=== PATIENT | female | born 1970 | race Caucasian/White ===

== ENCOUNTER 2017-04-24 11:48 | Emergency (ER) | payer OTHER ==
[~2017-04-24] VITALS: Ht 172.7 cm; Wt 99.8 kg
[~2017-04-24 11:48] MED LIST: ALBU90OI INH; BACITO TOP; BENLYSTA120 MG IV; BUPR150ER PO; BUSP10 PO; Bactrim Ds Tab1 EACH PO; CYCL10 PO; DIAZ5 PO; GABA300 PO; HYDACE5 PO; HYDACE5325 PO; HYDR1TAB94 PO; HYDSUL200 PO; HYOS.125 SL; INDO50 PO; METCAR500 PO; METPRE4DP PO; NAPR375 PO; NAPR500 PO; Norco 5-325 Ta1 EACH PO; OMEPRAZOLE MAGN20 MG PO; OXYACE5T PO; PRED10 PO; PROC25S PR; PROM25 PO; Percocet 10-321 EACH PO; Percocet 5-3251 EACH PO; Prednisone20 MG PO; TRAZ50 PO; Zofran8 MG PO
[2017-04-24] MEDS ORDERED: Pedi-Dri 100,0060 GM SS (13:04)
[2017-04-24] MEDS ORDERED: NYST237S MT (13:04)
[2018-01-10] MEDS ORDERED: Norco 5-325 Ta1 EACH PO (18:58)
[2018-01-13] MEDS ORDERED: Miralax17 GM PO (21:04)
[2018-01-13] MEDS ORDERED: ASPI81CH PO (21:10)
[2018-01-13] MEDS ORDERED: CLOP75 PO (21:11)
[2018-01-13] MEDS ORDERED: METO50ER PO (21:11)
[2018-01-13] MEDS ORDERED: ATOR20 PO (21:11)
[2018-01-13] MEDS ORDERED: Ranitidine HCl300 M1 PO (21:12)
[2018-01-14] MEDS ORDERED: METO25ER PO (10:19)
[2018-01-14] MEDS ORDERED: OXYC5 PO (10:20)
== END 2017-04-24 13:06 | disposition home or self-care (01) ==
LOC: ER 11:48
DX: B37.0 Candidal stomatitis (principal); G43.909 Migraine, unspecified, not intractable, without status migrainosus; K21.9 Gastro-esophageal reflux disease without esophagitis; F17.290 Nicotine dependence, other tobacco product, uncomplicated; Z88.5 Allergy status to narcotic agent; Z88.8 Allergy status to other drugs, medicaments and biological substances; Z79.899 Other long term (current) drug therapy
CPT/HCPCS: 99282

== ENCOUNTER 2017-12-11 21:48 | Inpatient (IN) | payer OTHER ==
[~2017-12-11] VITALS: Ht 172.7 cm; Wt 108.0 kg
[~2017-12-11 21:48] MED LIST changes: +NYST237S MT; +Pedi-Dri 100,0060 GM SS
[2017-12-11] MEDS ORDERED: Hydrocodone-Ap1 EA23 PO (22:00)
[2017-12-11] MEDS ORDERED: PRED20 PO (22:01)
[2017-12-11 22:30] LABS: BASOPHILS ABSOLUTE AUTO 0.04 K/mm3 (0.00-0.23); BASOPHILS PERCENT AUTO 0 % (0-2); EOSINOPHILS ABSOLUTE AUTO 0.01 K/mm3 (0.00-0.68); EOSINOPHILS PERCENT AUTO 0 % (0-6); Hematocrit 44.5 % (33.0-51.0); Hemoglobin 14.7 g/dL (11.5-16.0); IMMATURE GRAN ABSOLUTE AUTO 0.03 K/mm3 (0.00-0.10); IMMATURE GRAN PERCENT AUTO 0 % (0-1); LYMPHOCYTES ABSOLUTE AUTO 0.95 K/mm3 (0.84-5.20); LYMPHOCYTES PERCENT AUTO 11 % (21-46); MONOCYTES ABSOLUTE AUTO 0.63 K/mm3 (0.16-1.47); MONOCYTES PERCENT AUTO 7 % (4-13); Mean Corpuscular HGB 31.3 pg (26.0-34.0); Mean Corpuscular Volume 95 fL (80-100); Mean Platelet Volume 9.3 fL (9.1-12.4); NEUTROPHILS ABSOLUTE AUTO 7.31 K/mm3 (1.96-9.15); NEUTROPHILS PERCENT AUTO 82 % (41-73); Platelet Count 403 K/mm3 (150-400); RDW Coefficient Variation 12.3 % (11.7-14.2); Red Blood Cell Count 4.69 M/mm3 (3.80-5.20); White Blood Cell Count 8.97 K/mm3 (4.00-11.30)
[2017-12-11 22:45] LABS: Alanine Aminotransfer (ALT/SGP 27 U/L (12-78); Albumin, Blood 3.6 g/dL (3.4-5.0); Albumin/Globulin Ratio 0.9 (0.8-1.8); Alk Phos 104 U/L (50-136); Anion Gap 10 mmol/L (6-16); Aspartate Aminotrans (AST/SGOT 16 U/L (12-37); Bilirubin, Total 0.2 mg/dL (0.1-1.0); Blood Urea Nitrogen 11 mg/dL (8-24); Bun/Creatinine Ratio 10.8 (12.0-20.0); CO2, Blood 24 mmol/L (21-32); Calcium, Blood 8.4 mg/dL (8.5-10.1); Chloride, Blood 106 mmol/L (98-108); Creatinine, Blood 1.02 mg/dL (0.40-1.00); Globulin, Blood 4.2 g/dL (2.2-4.0); Glomerular Filtration Rate >60 (60-); Glucose, Blood 111 mg/dL (70-99); Potassium, Blood 3.7 mmol/L (3.5-5.5); Sodium, Blood 140 mmol/L (136-145); Total Protein, Blood 7.8 g/dL (6.4-8.2); Troponin I 0.448 ng/mL (0.000-0.040)
[2017-12-11 23:09] LABS: International Normalized Ratio 0.92; Prothrombin Time Results 9.5 Sec (9.7-11.5)
[2017-12-12 06:23] LABS: Hematocrit 41.4 % (33.0-51.0); Hemoglobin 13.7 g/dL (11.5-16.0); Mean Corpuscular HGB 31.2 pg (26.0-34.0); Mean Corpuscular HGB Conc 33.1 g/dL (31.5-36.5); Mean Corpuscular Volume 94 fL (80-100); Mean Platelet Volume 9.3 fL (9.1-12.4); Platelet Count 378 K/mm3 (150-400); RDW Coefficient Variation 12.2 % (11.7-14.2); Red Blood Cell Count 4.39 M/mm3 (3.80-5.20); White Blood Cell Count 8.22 K/mm3 (4.00-11.30)
[2017-12-12 06:44] LABS: Alanine Aminotransfer (ALT/SGP 25 U/L (12-78); Albumin, Blood 3.3 g/dL (3.4-5.0); Albumin/Globulin Ratio 0.9 (0.8-1.8); Alk Phos 95 U/L (50-136); Anion Gap 9 mmol/L (6-16); Aspartate Aminotrans (AST/SGOT 14 U/L (12-37); Bilirubin, Total 0.2 mg/dL (0.1-1.0); Blood Urea Nitrogen 12 mg/dL (8-24); Bun/Creatinine Ratio 13.7 (12.0-20.0); CO2, Blood 23 mmol/L (21-32); Calcium, Blood 8.3 mg/dL (8.5-10.1); Chloride, Blood 106 mmol/L (98-108); Creatinine, Blood 0.88 mg/dL (0.40-1.00); Globulin, Blood 3.8 g/dL (2.2-4.0); Glomerular Filtration Rate >60 (60-); Glucose, Blood 127 mg/dL (70-99); Potassium, Blood 4.3 mmol/L (3.5-5.5); Sodium, Blood 138 mmol/L (136-145); Total Protein, Blood 7.1 g/dL (6.4-8.2)
[2017-12-12 07:00] LABS: Troponin I 0.557 ng/mL (0.000-0.040)
[2017-12-12 15:09] LABS: Troponin I 0.491 ng/mL (0.000-0.040)
[2017-12-13 03:56] LABS: BASOPHILS ABSOLUTE AUTO 0.03 K/mm3 (0.00-0.23); BASOPHILS PERCENT AUTO 0 % (0-2); EOSINOPHILS ABSOLUTE AUTO 0.05 K/mm3 (0.00-0.68); EOSINOPHILS PERCENT AUTO 1 % (0-6); Hematocrit 37.2 % (33.0-51.0); IMMATURE GRAN ABSOLUTE AUTO 0.01 K/mm3 (0.00-0.10); IMMATURE GRAN PERCENT AUTO 0 % (0-1); LYMPHOCYTES ABSOLUTE AUTO 3.78 K/mm3 (0.84-5.20); LYMPHOCYTES PERCENT AUTO 51 % (21-46); MONOCYTES ABSOLUTE AUTO 0.67 K/mm3 (0.16-1.47); MONOCYTES PERCENT AUTO 9 % (4-13); Mean Corpuscular HGB 30.9 pg (26.0-34.0); Mean Corpuscular HGB Conc 32.3 g/dL (31.5-36.5); Mean Corpuscular Volume 96 fL (80-100); Mean Platelet Volume 9.4 fL (9.1-12.4); NEUTROPHILS ABSOLUTE AUTO 2.86 K/mm3 (1.96-9.15); NEUTROPHILS PERCENT AUTO 39 % (41-73); Platelet Count 315 K/mm3 (150-400); RDW Coefficient Variation 12.5 % (11.7-14.2); RDW Standard Deviation 43.8 fL (35.1-46.3); Red Blood Cell Count 3.88 M/mm3 (3.80-5.20)
[2017-12-13 04:19] LABS: Alanine Aminotransfer (ALT/SGP 21 U/L (12-78); Albumin, Blood 2.7 g/dL (3.4-5.0); Albumin/Globulin Ratio 0.8 (0.8-1.8); Alk Phos 72 U/L (50-136); Anion Gap 6 mmol/L (6-16); Aspartate Aminotrans (AST/SGOT 11 U/L (12-37); Bilirubin, Total 0.2 mg/dL (0.1-1.0); Blood Urea Nitrogen 18 mg/dL (8-24); Bun/Creatinine Ratio 19.1 (12.0-20.0); CO2, Blood 27 mmol/L (21-32); Calcium, Blood 7.8 mg/dL (8.5-10.1); Chloride, Blood 108 mmol/L (98-108); Creatinine, Blood 0.94 mg/dL (0.40-1.00); Globulin, Blood 3.2 g/dL (2.2-4.0); Glomerular Filtration Rate >60 (60-); Glucose, Blood 88 mg/dL (70-99); Sodium, Blood 141 mmol/L (136-145); Total Protein, Blood 5.9 g/dL (6.4-8.2)
== END 2017-12-14 12:28 | disposition short-term general hospital (02) | DRG 281 ==
LOC: ER 21:48 → PCU 21:49 → ER 23:44 → PCU 12-12 00:09
PROVIDERS: Emergency Medicine; Internal Medicine
PROC: B2111ZZ Fluoroscopy of Multiple Coronary Arteries using Low Osmolar Contrast (ICD-10-PCS; principal; 2017-12-14)
PROC: 4A023N7 Measurement of Cardiac Sampling and Pressure, Left Heart, Percutaneous Approach (ICD-10-PCS; 2017-12-14)
DX: I21.4 Non-ST elevation (NSTEMI) myocardial infarction (principal); I31.9 Disease of pericardium, unspecified; M32.9 Systemic lupus erythematosus, unspecified; G43.909 Migraine, unspecified, not intractable, without status migrainosus; Z87.891 Personal history of nicotine dependence; K21.9 Gastro-esophageal reflux disease without esophagitis; I25.10 Atherosclerotic heart disease of native coronary artery without angina pectoris
CPT/HCPCS: 36415; 71046; 76705; 80053; 82550; 84484; 85025; 85027; 85379; 85610; 85651; 85730; 86140; 86850; 86900; 86901; 93005; 93010; 93306; 93458; 96365; 96372; 96375; 96376; 99152; 99153; 99285-25; C1769; C1894; G0378; J0690; J1644; J1650; J1885; J2250; J2270; J2405; J2930; J3010; J7030; Q9967

== ENCOUNTER 2019-01-17 22:02 | Emergency (ER) | payer OTHER ==
[~2019-01-17] VITALS: Ht 170.2 cm; Wt 125.2 kg
[~2019-01-17 22:02] MED LIST changes: +ASPI81CH PO; +ATOR20 PO; +CLOP75 PO; +Hydrocodone-Ap1 EA23 PO; +METO25ER PO; +METO50ER PO; +Miralax17 GM PO; +OXYC5 PO; +PRED20 PO; +Ranitidine HCl300 M1 PO
== END 2019-01-18 00:34 | disposition home or self-care (01) ==
LOC: ER 22:02
DX: R51 Headache (principal); Z88.5 Allergy status to narcotic agent; Z88.6 Allergy status to analgesic agent; Z88.8 Allergy status to other drugs, medicaments and biological substances; Z79.899 Other long term (current) drug therapy; Z79.82 Long term (current) use of aspirin; G43.909 Migraine, unspecified, not intractable, without status migrainosus; Z87.891 Personal history of nicotine dependence
CPT/HCPCS: 96372; 99283-25; J1200; J3010

== ENCOUNTER 2020-03-29 08:35 | Day surgery (SDC) | payer MEDICARE, OTHER ==
[~2020-03-29] VITALS: Ht 172.7 cm; Wt 118.2 kg
[~2020-03-29 08:35] MED LIST changes: +BENLYSTA120 MG; +Isosorbide Mono30 MG PO; +NITR.4SL SL; +OMEP20ER PO; +ZYRTEC10 M2 PO
[2020-03-29] MEDS ORDERED: Norco 5-325 Ta1 EACH PO (09:17)
[2020-03-29] MEDS ORDERED: CLON.5 PO (09:18)
--- NOTE | 2020-03-29 11:38 | NUR ---
PT TO RECOVERY ROOM VIA MARY POST PROCEDURE. RILEY RTR, PULLED 5Fr GROIN SHEATH, CURRENTLY HOLDING MANUAL PRESSURE TO SITE. REPORT FROM [facility], REGARDING PROCEDURE AND RESULTS. VSS, PT VERBALIZED UNDERSTANDING NOT TO MOVE RIGHT LEG OR LIFT HEAD OFF OF BEAD. CALL LIGHT IN REACH.
--- NOTE | 2020-03-29 12:11 | NUR ---
PT EATING LUNCH, DENIES NEEDS. VSS, CALL LIGHT IN REACH. RIGHT GROIN SITE CLEAN AND DRY. NO SWELLING OR BLEEDING NOTED.
--- NOTE | 2020-03-29 13:19 | NUR ---
PT SLEEPING, VSS. CALL LIGHT IN REACH. RIGHT GROIN SITE REMAINS STABLE, DRESSING IS C/D/I
--- NOTE | 2020-03-29 15:30 | NUR ---
IV DC'D, CATH INTACT. PT VERBALIZED UNDERSTANDING OF DC INSTRUCTIONS AND FOLLOW UP INFORMATION. RIGHT GROIN SITE REMAINS SOFT AND NON-TENDER. NO BLEEDING OR SWELLING NOTED. VSS. OUT TO CAR VIA WHEELCHAIR.
== END 2020-03-29 23:50 | disposition home or self-care (01) ==
LOC: MHTC 08:35
DX: I25.119 Atherosclerotic heart disease of native coronary artery with unspecified angina pectoris (principal); I25.719 Atherosclerosis of autologous vein coronary artery bypass graft(s) with unspecified angina pectoris; I11.0 Hypertensive heart disease with heart failure; I50.9 Heart failure, unspecified; E78.00 Pure hypercholesterolemia, unspecified; M32.9 Systemic lupus erythematosus, unspecified; E66.01 Morbid (severe) obesity due to excess calories; F17.200 Nicotine dependence, unspecified, uncomplicated; Z88.6 Allergy status to analgesic agent; Z88.5 Allergy status to narcotic agent; Z88.8 Allergy status to other drugs, medicaments and biological substances; Z68.39 Body mass index [BMI] 39.0-39.9, adult; Z79.02 Long term (current) use of antithrombotics/antiplatelets; Z79.82 Long term (current) use of aspirin
CPT/HCPCS: 93459; 99152; 99153; A9270; C1769; C1894; J1644; J2250; J3010; J7030; J7050; Q9967

== ENCOUNTER 2020-07-14 15:37 | Emergency (ER) | payer MEDICARE, OTHER ==
[~2020-07-14] VITALS: Ht 170.2 cm; Wt 131.5 kg
[~2020-07-14 15:37] MED LIST changes: +CLON.5 PO
== END 2020-07-14 17:31 | disposition home or self-care (01) ==
LOC: ER 15:37
DX: S93.401A Sprain of unspecified ligament of right ankle, initial encounter (principal); S93.601A Unspecified sprain of right foot, initial encounter; Z88.5 Allergy status to narcotic agent; Z88.6 Allergy status to analgesic agent; Z88.8 Allergy status to other drugs, medicaments and biological substances; Z79.02 Long term (current) use of antithrombotics/antiplatelets; Z79.899 Other long term (current) drug therapy; W01.0XXA Fall on same level from slipping, tripping and stumbling without subsequent striking against object, initial encounter; Y92.009 Unspecified place in unspecified non-institutional (private) residence as the place of occurrence of the external cause
CPT/HCPCS: 73630; 99283-25